=== PATIENT | female | born 1965 | race Caucasian/White ===

== ENCOUNTER 2023-08-11 15:00 | Outpatient (CLI) | payer BC, MEDICAID, SELFPAY ==
--- NOTE | 2023-08-11 15:16 | MM_ITS ---
WS: [id number] Bilateral screening 3D tomosynthesis digital mammogram, 08/11/2023 Clinical Data: SCREENING Comparison: None. Findings: The breast parenchymal pattern shows fibroglandular tissue. There are bilateral augmentation mammopla sty implants which are intact. No spiculated masses or clustered calcifications are seen. There are n o secondary signs of carcinoma. MM/[id number] Impression: 1. Negative bilateral mammogram with no prior exam for review. 2. Recommend annual screening mammograms. BIRADS: 2-Benign FOLLOW UP: 1 Year Follow-up The CAD fact checker was used.
== END 2023-08-11 15:01 | disposition home or self-care (01) ==
PROVIDERS: Family Provider Counselor Professional; Visit Provider Nurse Practitioner
DX: Z12.31 Encounter for screening mammogram for malignant neoplasm of breast (principal)
CPT/HCPCS: 77063; 77067

== ENCOUNTER 2024-01-31 13:03 | Inpatient (IN) | payer BC, MEDICAID, SELFPAY ==
[2024-01-31 13:06] VITALS: BP 106/70; PULSE 80; RESP 18; TEMP 36.9; O2SAT 98; BMI 24.7
[2024-01-31 13:12] VITALS: BP 106/70; PULSE 80; RESP 18; TEMP 36.9; O2SAT 98
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
[2024-01-31 13:40] LABS: Basophils # 0.1 10^3/uL (0.0-0.1); Basophils % 0.9 %; Eosinophils # 0.2 10^3/uL (0.0-0.8); Eosinophils % 2.4 %; Lymphocytes # 3.5 10^3/uL (0.8-4.8); Lymphocytes % 38.1 %; Mean Corpuscular HGB Conc 32.8 g/dL (30-55); Mean Corpuscular Volume 97.5 fl (85-98); Mean Platelet Volume 10.1 fL (7.4-10.4); Monocytes # 0.7 10^3/uL (0.2-0.9); Monocytes % 7.4 %; Neutrophils # 4.67 10^3/uL (1.8-7.7); Nucleated Red Blood Cells % 0 %; Platelet Count 349 10^3/cmm (157-399); Red Blood Count 4.41 10^6/uL (3.85-5.65); Red Cell Distribution Width 12.7 % (12.1-15.1); White Blood Count 9.16 10^3/uL (3.29-11.43)
--- NOTE | 2024-01-31 13:40 | PC.NURSE ---
96 hour hold rights read to patient. Paulino server security administrator accompanied this nurse during the reading of rights. Patient verbalized understandings and copy of rights left at the bedside.
[2024-01-31 13:59] LABS: Alanine Aminotransferase 15 U/L (0-33); Albumin Level 4.3 g/dL (3.5-5.2); Alkaline Phosphatase 95 U/L (35-105); Anion Gap 14.3 (5-19); Aspartate Amino Transferase 22 U/L (0-32); Blood Urea Nitrogen 13 mg/dL (6-20); Calcium 8.5 mg/dL (8.5-10.5); Carbon Dioxide 26 mmol/L (22-29); Chloride 108 mmol/L (98-107); Globulin 2.2 g/dL (1.3-4.6); Glomerular Filtration Rate 86.6 mL/min (90-130); Glucose 82 mg/dL (65-115); Osmolality Calculated 297 mOsm/kg (285-295); Potassium 4.3 mmol/L (3.5-5.1); Sodium 144 mmol/L (136-145); Total Bilirubin 0.4 mg/dL (0.15-1.2); Total Protein 6.5 g/dL (6.6-8.7)
[2024-01-31 14:00] LABS: Acetaminophen < 5.0 ug/mL (10-30); Alcohol Level < 10 mg/dL (0-10); Salicylate < 0.3 mg/dL (3-10)
[2024-01-31] MEDS: acetaminophen 325 mg Tablet 650 MG PO (14:19)
[2024-01-31 15:19] VITALS: BP 115/83; PULSE 73; RESP 18; O2SAT 99
[2024-01-31 15:23] VITALS: BP 103/79; PULSE 78; O2SAT 100
[2024-01-31] MEDS: haloperidol inj 5 mg/mL INJ 1 mL IM (16:11)
[2024-01-31] MEDS: diphenhydrAMINE 50 mg/mL SDV 1mL IM (16:11)
[2024-01-31] MEDS: LORazepam 2 mg/mL INJ 1 mL IM (16:11)
--- NOTE | 2024-01-31 16:57 | PC.NURSE ---
During admission to the unit, pt became increasingly agitated and hysterical over talking about why she was here. rod filler got permission from Dr. Chopra to give IM Ativan 2mg & IM Haldol 5mg in the Left deltoid and IM Benadryl 50mg in the Right deltoid. Patient tolerated the shots well and laid down in bed. RR even and unlabored.
[2024-01-31 19:32] VITALS: BP 96/61; PULSE 71; RESP 16; TEMP 37; O2SAT 98
[2024-02-01 06:00] VITALS: BP 96/59; PULSE 59; RESP 16; O2SAT 96
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
[2024-02-01 08:26] LABS: Amphetamines Screen Urine Negative (Negative); Barbiturates Screen Urine Negative (Negative); Benzodiazepines Screen Urine Positive (Negative); Cocaine Screen Urine Negative (Negative); Opiate Screen Urine Negative (Negative); PCP Screen Urine Negative (Negative); THC Screen Urine Negative (Negative)
[2024-02-01] MEDS: blistex lip oint 7 gm Tube 1 APPLIC TOPICAL (08:59)
--- NOTE | 2024-02-01 09:00 | PC.NURSE ---
MILD ANXIETY NOTED. PT RATES ANXIETY 0/10 AND DEPRESSION 3/10. DENIES SI/HI AND AVH AT THIS TIME. DENIES PAIN. REPORTS SHE SLEPT WELL LAST NIGHT. PT STATES HER GOAL FOR THE DAY IS TO READ THE BIBLE WHILE I'M HERE. SPEECH IS UNCLEAR AND DIFFICULTY TO UNDERSTAND. AFFECT IS FLAT. ALL QUESTIONS ANSWERED AND SUPPORT WAS VOICED.
[2024-02-01 14:00] VITALS: BP 108/67; PULSE 71; RESP 16; TEMP 36.5; O2SAT 97
[2024-02-01] MEDS: escitalopram 10 mg Tablet PO (18:14)
[2024-02-01 20:02] VITALS: BP 105/75; PULSE 68; RESP 18; O2SAT 98
[2024-02-01] MEDS: nicotine 2 mg Gum BUCCAL (20:28)
[2024-02-01] MEDS: hyDROXYzine 25 mg Capsule 50 MG PO (20:28)
[2024-02-01] MEDS: trazodone 50 mg Tablet PO (20:28)
[2024-02-02 06:00] VITALS: BP 89/58; PULSE 79; RESP 16; TEMP 36.8; O2SAT 97
[2024-02-02] MEDS: acetaminophen 325 mg Tablet 650 MG PO (09:19)
[2024-02-02] MEDS: escitalopram 10 mg Tablet PO (09:20)
--- NOTE | 2024-02-02 10:06 | W.PM.NPUPNS ---
Subjective NPU Subjective: Patient presented today reporting that she is feeling better. She identified that she is doing okay with the medication thus far. She continues to struggle with some of the elements related to her relationship with her father. She seems to be less tearful and labile per staff reports and direct observation. She denied any side effects to the medication thus far. Mental Status Exam MSE Comments: This is a well-nourished well-developed white female in hospital scrubs with adequate grooming and eye contact.? No abnormal movements except for mild psychomotor retardation.? Mostly cooperative with exam in mild to moderate distress.? Speech was normal rate and decreased volume.? Mood described as okay I guess better than yesterday, affect subdued.? Thought process linear.? Thought content: Patient denied suicidal or homicidal ideation, there were no delusions reported or noted, she denied auditory or visual hallucinations. The patient has experienced periods of low mood, feelings of helplessness, hopelessness, and worthlessness. The patient has had thoughts of not wanting to wake up, but denies current suicidal ideation. The patient reports experiencing paranoia and hearing voices, but is able to ignore them. The patient also reports having nightmares and flashbacks about traumatic events in their life.. Attention and concentration were limited and memory appeared mostly reliable but none were formally tested.? She is alert and oriented x 3.? Insight, judgment and impulse control are limited versus impaired. Vitals/I&O/Wt Last Vital Signs Temp 98.2 F 02/02/24 06:00 Pulse 79 02/02/24 06:00 Resp 16 02/02/24 06:00 BP 89/58 02/02/24 06:00 Pulse Ox 97 02/02/24 06:00 O2 Del Method Room Air 02/02/24 06:00 Weight last 48 hrs Weight 63.503 kg Data NPU 01/31/24 13:21 01/31/24 13:21 A&P Assessment and plan (1) Acute psychosis: (2) Involuntary commitment: (3) Major depressive disorder, recurrent: (4) PTSD (post-traumatic stress disorder): (5) History of alcohol use disorder: (6) Methamphetamine use disorder, moderate, in early remission, dependence: (7) Parent-child relational problem: Plan This is a 58-year-old white female with a significant history of mental health and addiction as well as trauma and difficulties with her relationship with her father. The patient is currently on a 96-hour involuntary psychiatric hold due 2 issues she is unclear about. The patient has a history of depression, anxiety, and trauma. The patient is currently not on any psychotropic medications, but is amenable to initiating pharmacotherapy for depression. The patient is experiencing symptoms of paranoia and auditory hallucinations, but is able to manage these psychotic symptoms. 1.? Initiated Lexapro 10 mg p.o. daily 2.? Continue every 15 minute checks for safety. 3.? Encourage individual, group and milieu therapies. 4. Encourage sober living treatment after discharge at the highest level care to which she is willing to commit. Involuntary Hold Information 96 Hour Hold: 96 Hour Involuntary Admission: Yes 96 Hour Hold Ending Date: 02/06/24 96 Hour Hold Ending Time: 13:17 Attestations U Medical Necessity Statement*: Inpatient hospitalization is medically necessary and the clinically appropriate intervention at this time. We will monitor medication to make changes as indicated. Likely length of stay 4-6 days. Coding Level of Care Code Acute Code for [facility] Fwd Diagnoses Acute psychosis F23 Involuntary commitment Z04.6 Major depressive disorder, recurrent F33.9 PTSD (post-traumatic stress disorder) F43.10 History of alcohol use disorder Z87.898 Methamphetamine use disorder, moderate, in early remission, dependence F15.21 Parent-child relational problem Z62.820
--- NOTE | 2024-02-02 10:08 | PC.NURSE ---
RESTING IN BED AROUSES TO VOICE. FLAT AFFECT NOTED. RATES ANXIETY 06/25 AND DEPRESSION /. DENIES SI/HI AT THIS TIME. ENDORSES HEARING VOICE. STATES I ALWAYS HEAR ONE VOICE ALL THE TIME. PT WAS OBSERVED STOPPING THE CONVERSTATION THEN LOOKING UP STATING SEE I'M LISTENING TO THE VOICE NOW. WHEN ASKED IF SHE SEES THINGS THAT ARE NOT THERE PT STATES YEAH WHEN I'M IN THE [place] SOMETIMES SUPPORT VOICED.
[2024-02-02] MEDS: nicotine 2 mg Gum BUCCAL ×4 (10:36→18:14)
--- NOTE | 2024-02-02 13:02 | PC.NURSE ---
Patient at window, yelling at staff about not having access to colored pencils or pens. Patient stated, if I was a child in preschool, I would have already dumped all of this on floor, but I am not going to do that! I won't even consider it! Patient also said that this is another wrench in her getting help.
[2024-02-02] MEDS: diclofenac 1% Topical Gel 100 gm 1 APPLIC TOPICAL (13:29)
[2024-02-02 14:00] VITALS: BP 120/82; PULSE 79; RESP 17; O2SAT 96
[2024-02-02] MEDS: hyDROXYzine 25 mg Capsule 50 MG PO ×2 (18:14→21:05)
[2024-02-02 20:51] VITALS: BP 159/90; PULSE 82; RESP 18; TEMP 37.1; O2SAT 98
[2024-02-02] MEDS: trazodone 50 mg Tablet PO (21:06)
[2024-02-03 06:00] VITALS: BP 98/69; PULSE 69; RESP 16; TEMP 36.9; O2SAT 93
[2024-02-03] MEDS: nicotine 2 mg Gum BUCCAL ×4 (06:43→15:16)
[2024-02-03] MEDS: escitalopram 10 mg Tablet PO (08:32)
[2024-02-03] MEDS: hyDROXYzine 25 mg Capsule 50 MG PO ×2 (09:18→15:13)
[2024-02-03] MEDS: OLANZapine 5 mg ODT PO (13:01)
[2024-02-03 14:00] VITALS: BP 106/71; PULSE 77; RESP 16; TEMP 37.2; O2SAT 98
[2024-02-03] MEDS: acetaminophen 325 mg Tablet 650 MG PO (15:16)
--- NOTE | 2024-02-03 19:10 | W.PM.NPUPNS ---
Subjective NPU Subjective: Patient presented today reporting that she is very frustrated. She identified herself as being upset about being forced to be here and her father never having any consequences per staff reports and direct observation. She reported that she needed to be allowed to leave so that she can get on with her life including getting her own place and things like that. She was upset when this ad writer raise the question of why that has not been something she has done already and why discharging now allows her to do something that she could not do the past years. She was very limited in her ability to discuss the issue. She denied any side effects from the medication but was resistant to initiating a medication for mood stabilization. Mental Status Exam MSE Comments: This is a well-nourished well-developed white female in hospital scrubs with adequate grooming and eye contact.? No abnormal movements except for mild psychomotor retardation.? Mostly cooperative with exam in mild to moderate distress.? Speech was normal rate and decreased volume.? Mood described as upset about being here, affect congruent and irritable. Thought process linear.? Thought content: Patient denied suicidal or homicidal ideation, there were no delusions reported or noted, she denied auditory or visual hallucinations. The patient has experienced periods of low mood, feelings of helplessness, hopelessness, and worthlessness. The patient has had thoughts of not wanting to wake up, but denies current suicidal ideation. The patient reports experiencing paranoia and hearing voices, but is able to ignore them. The patient also reports having nightmares and flashbacks about traumatic events in their life.. Attention and concentration were limited and memory appeared mostly reliable but none were formally tested.? She is alert and oriented x 3.? Insight, judgment and impulse control are limited versus impaired. Vitals/I&O/Wt Last Vital Signs Temp 99 F 02/03/24 14:00 Pulse 77 02/03/24 14:00 Resp 16 02/03/24 14:00 BP 106/71 02/03/24 14:00 Pulse Ox 98 02/03/24 14:00 O2 Del Method Room Air 02/03/24 14:00 Data NPU 01/31/24 13:21 01/31/24 13:21 A&P Assessment and plan (1) Acute psychosis: (2) Involuntary commitment: (3) Major depressive disorder, recurrent: (4) PTSD (post-traumatic stress disorder): (5) History of alcohol use disorder: (6) Methamphetamine use disorder, moderate, in early remission, dependence: (7) Parent-child relational problem: Plan This is a 58-year-old white female with a significant history of mental health and addiction as well as trauma and difficulties with her relationship with her father. The patient is currently on a 96-hour involuntary psychiatric hold due 2 issues she is unclear about. The patient has a history of depression, anxiety, and trauma. The patient is currently not on any psychotropic medications, but is amenable to initiating pharmacotherapy for depression. The patient is experiencing symptoms of paranoia and auditory hallucinations, but is able to manage these psychotic symptoms. 1.? Initiated Lexapro 10 mg p.o. daily. Discussed a possible mood stabilizer but she is currently fairly irritable. 2.? Continue every 15 minute checks for safety. 3.? Encourage individual, group and milieu therapies. 4. Encourage sober living treatment after discharge at the highest level care to which she is willing to commit. 5. Filed for 21-day hold. Involuntary Hold Information 96 Hour Hold: 96 Hour Involuntary Admission: Yes 96 Hour Hold Ending Date: 02/06/24 96 Hour Hold Ending Time: 13:17 Attestations NPU Medical Necessity Statement*: Inpatient hospitalization is medically necessary and the clinically appropriate intervention at this time. We will monitor medication to make changes as indicated. Likely length of stay 4-6 days. Coding Level of Care Code Acute Code for [facility] Fwd Diagnoses Acute psychosis F23 Involuntary commitment Z04.6 Major depressive disorder, recurrent F33.9 PTSD (post-traumatic stress disorder) F43.10 History of alcohol use disorder Z87.898 Methamphetamine use disorder, moderate, in early remission, dependence F15.21 Parent-child relational problem Z62.820
[2024-02-03 19:33] VITALS: BP 86/53; PULSE 64; RESP 16; TEMP 36.4; O2SAT 97
[2024-02-04 06:00] VITALS: BP 135/85; PULSE 68; RESP 16; TEMP 36.5; O2SAT 99
[2024-02-04] MEDS: nicotine 2 mg Gum BUCCAL ×4 (06:10→14:14)
[2024-02-04] MEDS: escitalopram 10 mg Tablet PO (08:01)
--- NOTE | 2024-02-04 09:15 | PC.NURSE ---
PT IS AGITATED THIS MORNING ABOUT A VARIETY OF DIFFERENT THINGS. THIS NURSE ATTEMPTED TO APPROACH PT TO PERFORM ASSESSMENT AND SPEAK TO HER ABOUT WHAT IS GOING ON AND THIS INCREASED PT AGITATION AND PT YELLED DON'T TALK DOWN TO ME LIKE THAT. LEARN SOME RESPECT, I DON'T NEED SOME FUCKING LITTLE GIRL ASKING 'HOW ARE YOU, WHAT CAN I DO FOR YOU?' PT THEN CONTINUED TO YELL IN HER ROOM UNTIL SHE FELL ASLEEP. THIS NURSE CHOSE TO GIVE PT SPACE DUE TO HER REACTION TO ATTEMPTED INTERACTION. PT APPEARED TO BE IN NO DISTRESS AFTER FALLING ASLEEP.
[2024-02-04] MEDS: polyethylene glycol 3350 Pkt 17 gm PO (09:24)
--- NOTE | 2024-02-04 09:25 | P.NPUPN_ITS ---
Subjective NPU 2 Subjective: Patient presented today reporting that she is upset about being here. She feels that other people are being treated better and she feels concerns that she is going to be stuck here when she does not need to be here. She continues to be resistant to the idea that there is anything significant going on with her. She continues to be upset that her father is not having to go through similar challenges. She denied any side effects to medications but would not have an open discussion about treatment for her hyperkinetic, irritable state. Mental Status Exam 2 MSE Comments: This is a well-nourished well-developed white female in hospital scrubs with adequate grooming and eye contact.? No abnormal movements except for mild psychomotor retardation.? Mostly cooperative with exam in mild to moderate distress.? Speech was normal rate and decreased volume.? Mood described as upset about being here, affect congruent and irritable. Thought process linear.? Thought content: Patient denied suicidal or homicidal ideation, there were no delusions reported or noted, she denied auditory or visual hallucinations. The patient has experienced periods of low mood, feelings of helplessness, hopelessness, and worthlessness. The patient has had thoughts of not wanting to wake up, but denies current suicidal ideation. The patient reports experiencing paranoia and hearing voices, but is able to ignore them. The patient also reports having nightmares and flashbacks about traumatic events in their life.. Attention and concentration were limited and memory appeared mostly reliable but none were formally tested.? She is alert and oriented x 3.? Insight, judgment and impulse control are limited versus impaired. Vitals/I&O/Wt Last Vital Signs Temp 97.7 F 02/04/24 06:00 Pulse 68 02/04/24 06:00 Resp 16 02/04/24 06:00 BP 135/85 02/04/24 06:00 Pulse Ox 99 02/04/24 06:00 O2 Del Method Room Air 02/04/24 06:00 Data NPU 01/31/24 13:21 01/31/24 13:21 A&P Assessment and plan (1) Acute psychosis: (2) Involuntary commitment: (3) Major depressive disorder, recurrent: (4) PTSD (post-traumatic stress disorder): (5) History of alcohol use disorder: (6) Methamphetamine use disorder, moderate, in early remission, dependence: (7) Parent-child relational problem: Plan This is a 58-year-old white female with a significant history of mental health and addiction as well as trauma and difficulties with her relationship with her father. The patient is currently on a 96-hour involuntary psychiatric hold due 2 issues she is unclear about. The patient has a history of depression, anxiety, and trauma. The patient is currently not on any psychotropic medications, but is amenable to initiating pharmacotherapy for depression. The patient is experiencing symptoms of paranoia and auditory hallucinations, but is able to manage these psychotic symptoms. 1.? Initiated Lexapro 10 mg p.o. daily. Discussed a possible mood stabilizer but she is currently fairly irritable. Patient resistant to initiating additional medication at this point but continues to appear manic 2.? Continue every 15 minute checks for safety. 3.? Encourage individual, group and milieu therapies. 4. Encourage sober living treatment after discharge at the highest level care to which she is willing to commit. 5. Filed for 21-day hold. Involuntary Hold Information 2 96 Hour Hold: 96 Hour Involuntary Admission: Yes 96 Hour Hold Ending Date: 02/06/24 96 Hour Hold Ending Time: 13:17 Attestations NPU 2 Medical Necessity Statement*: Inpatient hospitalization is medically necessary and the clinically appropriate intervention at this time. We will monitor medication to make changes as indicated. Likely length of stay 4-6 days. Coding Level of Care Code Acute Code for [facility] Fwd Diagnoses Acute psychosis F23 Involuntary commitment Z04.6 Major depressive disorder, recurrent F33.9 PTSD (post-traumatic stress disorder) F43.10 History of alcohol use disorder Z87.898 Methamphetamine use disorder, moderate, in early remission, dependence F15.21 Parent-child relational problem Z62.820
[2024-02-04] MEDS: hyDROXYzine 25 mg Capsule 50 MG PO (10:41)
[2024-02-04] MEDS: OLANZapine 5 mg ODT PO (10:42)
[2024-02-04 13:57] VITALS: BP 106/73; PULSE 84; RESP 18; TEMP 35.9; O2SAT 98
[2024-02-04] MEDS: haloperidol 5 mg Tablet PO (14:18)
[2024-02-04 20:06] VITALS: BP 90/57; PULSE 69; RESP 18; TEMP 36.6; O2SAT 96
[2024-02-04] MEDS: CLONazepam 1 mg Tablet PO (21:15)
[2024-02-05 06:00] VITALS: BP 90/53; PULSE 76; RESP 17; O2SAT 96
[2024-02-05] MEDS: nicotine 2 mg Gum BUCCAL ×4 (07:22→20:08)
--- NOTE | 2024-02-05 07:59 | P.NPUPN_ITS ---
Subjective NPU 2 Subjective: Patient presented today reporting that she is doing okay. She was resistant to conversation. She continued to have irritability per staff reports and direct observation. Discussed Dr. Palomino returning tomorrow to be be decision-maker for discharge. Continue to discuss mood stabilizers with resistance. Discussed having a milligram of Klonopin for assistance with sleep. She denied any side effects to the medication. Mental Status Exam 2 MSE Comments: This is a well-nourished well-developed white female in hospital scrubs with adequate grooming and eye contact.? No abnormal movements except for mild psychomotor retardation.? Mostly cooperative with exam in mild to moderate distress.? Speech was normal rate and decreased volume.? Mood described as upset about being here, affect congruent and irritable. Thought process linear.? Thought content: Patient denied suicidal or homicidal ideation, there were no delusions reported or noted, she denied auditory or visual hallucinations. The patient has experienced periods of low mood, feelings of helplessness, hopelessness, and worthlessness. The patient has had thoughts of not wanting to wake up, but denies current suicidal ideation. The patient reports experiencing paranoia and hearing voices, but is able to ignore them. The patient also reports having nightmares and flashbacks about traumatic events in their life.. Attention and concentration were limited and memory appeared mostly reliable but none were formally tested.? She is alert and oriented x 3.? Insight, judgment and impulse control are limited versus impaired. Vitals/I&O/Wt Last Vital Signs Temp 97.8 F 02/04/24 20:06 Pulse 76 02/05/24 06:00 Resp 17 02/05/24 06:00 BP 90/53 02/05/24 06:00 Pulse Ox 96 02/05/24 06:00 O2 Del Method Room Air 02/04/24 20:06 Weight last 48 hrs Weight 59.194 kg Data NPU 01/31/24 13:21 01/31/24 13:21 A&P Assessment and plan (1) Acute psychosis: (2) Involuntary commitment: (3) Major depressive disorder, recurrent: (4) PTSD (post-traumatic stress disorder): (5) History of alcohol use disorder: (6) Methamphetamine use disorder, moderate, in early remission, dependence: (7) Parent-child relational problem: Plan This is a 58-year-old white female with a significant history of mental health and addiction as well as trauma and difficulties with her relationship with her father. The patient is currently on a 96-hour involuntary psychiatric hold due 2 issues she is unclear about. The patient has a history of depression, anxiety, and trauma. The patient is currently not on any psychotropic medications, but is amenable to initiating pharmacotherapy for depression. The patient is experiencing symptoms of paranoia and auditory hallucinations, but is able to manage these psychotic symptoms. 1.? Initiated Lexapro 10 mg p.o. daily. Discussed a possible mood stabilizer but she is currently fairly irritable. Patient resistant to initiating additional medication at this point but continues to appear manic. Initiated 1 mg Klonopin p.o. nightly to help with sleep and trying to work with patient on a mood stabilizer. 2.? Continue every 15 minute checks for safety. 3.? Encourage individual, group and milieu therapies. 4. Encourage sober living treatment after discharge at the highest level care to which she is willing to commit. 5. Filed for 21-day hold. Involuntary Hold Information 2 96 Hour Hold: 96 Hour Involuntary Admission: Yes 96 Hour Hold Ending Date: 02/06/24 96 Hour Hold Ending Time: 13:17 Attestations NPU 2 Medical Necessity Statement*: Inpatient hospitalization is medically necessary and the clinically appropriate intervention at this time. We will monitor medication to make changes as indicated. Likely length of stay 4-6 days. Coding Level of Care Code Acute Code for [facility] Fwd Diagnoses Acute psychosis F23 Involuntary commitment Z04.6 Major depressive disorder, recurrent F33.9 PTSD (post-traumatic stress disorder) F43.10 History of alcohol use disorder Z87.898 Methamphetamine use disorder, moderate, in early remission, dependence F15.21 Parent-child relational problem Z62.820
[2024-02-05] MEDS: escitalopram 10 mg Tablet PO (08:57)
[2024-02-05] MEDS: OLANZapine 5 mg ODT PO (08:57)
[2024-02-05] MEDS: ziprasidone 20 mg/mL SDV IM (11:12)
[2024-02-05] MEDS: water for injection-sterile 10 ML (11:13)
[2024-02-05 14:00] VITALS: BP 132/78; PULSE 85; RESP 20; TEMP 37.1; O2SAT 99
--- NOTE | 2024-02-05 17:18 | PC.NURSE ---
1105 Pt up at the nurses station talking with another peer and this keno writer. Pt was verbally provoked by another pt, pt was already on edge and being snarky with comments and digs towards BASEBALL COACH on the unit. Medication was ordered IM from the for this pt's extreme agitation.
[2024-02-05 19:57] VITALS: BP 113/83; PULSE 73; RESP 19; TEMP 36.2; O2SAT 97
[2024-02-05] MEDS: CLONazepam 1 mg Tablet PO (20:08)
[2024-02-06 06:15] VITALS: BP 95/72; PULSE 90; RESP 18; TEMP 36.8; O2SAT 96
[2024-02-06] MEDS: nicotine 2 mg Gum BUCCAL ×4 (06:29→15:28)
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
[2024-02-06] MEDS: escitalopram 10 mg Tablet PO (08:32)
[2024-02-06] MEDS: hyDROXYzine 25 mg Capsule 50 MG PO (10:27)
[2024-02-06] MEDS: acetaminophen 325 mg Tablet 650 MG PO (10:27)
[2024-02-06] MEDS: blistex lip oint 7 gm Tube 1 APPLIC TOPICAL (10:27)
--- NOTE | 2024-02-06 10:29 | PC.NURSE ---
PRN VISTARIL 50 MG GIVEN PO PER PT C/O STATED ANXIETY
--- NOTE | 2024-02-06 12:02 | PC.NURSE ---
NEW ORDERS RECEIVED TO GIVE MULTIVITAMIN TAB DAILY AND LIDOCAINE PATCH 5% TOPICAL PRN PAIN. PT EDUCATED ON NEW ORDERS AND SUPPORT WAS VOICED.
[2024-02-06] MEDS: multivitamin therapeutic Tablet 1 TAB PO (12:14)
[2024-02-06] MEDS: OLANZapine 5 mg ODT PO (12:54)
[2024-02-06] MEDS: haloperidol 5 mg Tablet PO (13:58)
--- NOTE | 2024-02-06 13:59 | PC.NURSE ---
PRN HALDOL 5 MG GIVEN PO PER PT C/O STATED ANXIETY/AGITATION. REQUESTING ANY AND ALL PRN MEDICATIONS SHE CAN HAVE
[2024-02-06 14:00] VITALS: BP 106/72; PULSE 89; RESP 18; TEMP 36.6; O2SAT 100
[2024-02-06] MEDS: lidocaine 5% Patch 1 PATCH TOPICAL (14:02)
--- NOTE | 2024-02-06 16:36 | PC.NURSE ---
PT REQUIRED SEVERAL PRN MEDICATIONS THIS SHIFT DUE TO ANXIETY AND AGITATION. PT WAS OBSERVED AT THE NURSES STATION YELLING AT THIS RN MAKING STATEMENTS YOU GUYS MAKE ME STAY HERE AND I NEED A MANAGER BRIDGE A FUCKING MANAGER BRIDGE, YOU NEED TO CALL THE HOSPITAL MANAGER BRIDGE TO COME AND EXPLAIN THE PAPER WORK THAT I DIDN'T SIGN. I NEVER AGREED TO STAY HERE, I'M GOING TO GET A MANAGER BRIDGE. LOTS OF OFFICE COMMUNICATION PROFESSOR. PT ALSO KEPT YELLING FOR A A PIECE OF THAT FUCKING NICOTINE GUM, HURRY UP I NEED SOME GUM. PT WAS INFORMED THAT THIS RN WOULD GET THE GUM WHEN FINISHED TASK. PT WAS REDIRECTED TO STOP YELLING AT THIS RN AND AT THE NURSING STAFFF. PT YELLED STATING I'M NOT FUCKING YELLING BUT I'M DONE ARGUING WITH YOU. PT THEN GOT ON PHONE AND WAS SPEAKING TO THE ART INSTRUCTOR ABOUT HER HOLD. THIS RN WENT OVER TO THE PHONE AND GAVE PT HER NICOTINE GUM. GEODON 20 MG IM WAS PULLED TO GIVE BUT PT DID EVENTUALLY CALM AND REQUIRED NO FURTHER INTERVENTION. SUPPORT VOICED.
--- NOTE | 2024-02-06 19:14 | P.NPUPN_ITS ---
Subjective NPU 2 Subjective: 58-year-old female admitted with psychos is the past history of methamphetamine use. Patient had reported a history of PTSD. She had reported that she was feeling better currently. She had reported that she had felt calmer currently. She had stated that she was unsure as to whether she could return to live with her father and stated that she may need to go to a [place] [facility] [place] instead. She was agreeable to considering psychotherapy. She had reported that she was upset over having to remain here at this time as a 96-hour hold was filed. She had remained resistant regarding initiating mood stabilizers at this time. She denied any racing thoughts but remained irritable with poor frustration tolerance reported by staff. She had reported hx of frequent trauma based nightmares. Mental Status Exam 2 MSE Comments: This is a well-nourished well-developed white female in hospital scrubs with adequate grooming and eye contact.? No abnormal movements except for mild psychomotor retardation.? Mostly cooperative with exam in mild to moderate distress.? Speech was normal rate and decreased volume.? Mood described as upset about being here, affect was irritable. Thought process was linear.? Thought content: Patient denied suicidal or homicidal ideation, there were no delusions reported or noted, she denied auditory or visual hallucinations. She denied any auditory or visual hallucinations. The patient also reports having nightmares and flashbacks about traumatic events in their life.. Attention and concentration were limited and memory appeared mostly reliable but none were formally tested.? She is alert and oriented x 3.? Insight, judgment and impulse control are limited versus impaired. Vitals/I&O/Wt Last Vital Signs Temp 97.9 F 02/06/24 14:00 Pulse 89 02/06/24 14:00 Resp 18 02/06/24 14:00 BP 106/72 02/06/24 14:00 Pulse Ox 100 02/06/24 14:00 O2 Del Method Room Air 02/06/24 06:15 02/06/24 02/06/24 02/06/24 06:59 14:59 22:59 Intake Total 500 / 500 Balance 500 / 500 Weight last 48 hrs Weight 59.194 kg Data NPU 01/31/24 13:21 01/31/24 13:21 A&P Assessment and plan (1) Acute psychosis: (2) Involuntary commitment: (3) Major depressive disorder, recurrent: (4) PTSD (post-traumatic stress disorder): (5) History of alcohol use disorder: (6) Methamphetamine use disorder, moderate, in early remission, dependence: (7) Parent-child relational problem: Plan This is a 58-year-old white female with a significant history of mental health and addiction as well as trauma and difficulties with her relationship with her father. The patient is currently on a 96-hour involuntary psychiatric hold due 2 issues she is unclear about. The patient has a history of depression, anxiety, and trauma. The patient is currently not on any psychotropic medications, but is amenable to initiating pharmacotherapy for depression. The patient is experiencing symptoms of paranoia and auditory hallucinations, but is able to manage these psychotic symptoms. 1.? Continue Lexapro 10 mg p.o. daily. Discussed a possible mood stabilizer but she is currently fairly irritable. Patient resistant to initiating additional medication at this point but continues to appear manic. Initiated 1 mg Klonopin p.o. nightly to help with sleep and trying to work with patient on a mood stabilizer. 2.? Continue every 15 minute checks for safety. 3.? Encourage individual, group and milieu therapies. 4. Encourage sober living treatment after discharge at the highest level care to which she is willing to commit. 5. Filed for 21-day hold. Involuntary Hold Information 2 96 Hour Hold: 96 Hour Involuntary Admission: Yes 96 Hour Hold Ending Date: 02/06/24 96 Hour Hold Ending Time: 13:17 Attestations NPU 2 Medical Necessity Statement*: Inpatient hospitalization is medically necessary and the clinically appropriate intervention at this time. We will monitor medication to make changes as indicated. Likely length of stay 4-6 days. Coding Level of Care Code Acute Code for [facility] Fwd Diagnoses Acute psychosis F23 Involuntary commitment Z04.6 Major depressive disorder, recurrent F33.9 PTSD (post-traumatic stress disorder) F43.10 History of alcohol use disorder Z87.898 Methamphetamine use disorder, moderate, in early remission, dependence F15.21 Parent-child relational problem Z62.820
--- NOTE | 2024-02-06 19:41 | PC.NURSE ---
pt ref vs resp 16 charge notified
[2024-02-07 04:55] VITALS: BP 98/74; PULSE 67; RESP 18; TEMP 36.7; O2SAT 97
[2024-02-07] MEDS: nicotine 4 mg lozenge MUCOUS MEM (05:03)
[2024-02-07] MEDS: nicotine 2 mg Gum BUCCAL ×4 (07:30→12:54)
[2024-02-07] MEDS: OLANZapine 5 mg ODT PO ×2 (07:30→14:14)
[2024-02-07] MEDS: multivitamin therapeutic Tablet 1 TAB PO (09:21)
[2024-02-07] MEDS: escitalopram 10 mg Tablet PO (09:21)
[2024-02-07] MEDS: lidocaine 5% Patch 1 PATCH TOPICAL (09:41)
[2024-02-07] MEDS: haloperidol 5 mg Tablet PO (10:16)
[2024-02-07] MEDS: ARIPiprazole 10 mg Tablet 5 MG PO (12:02)
[2024-02-07 12:29] VITALS: BP 98/74; PULSE 67; RESP 18; TEMP 36.7; O2SAT 97
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
[2024-02-07] MEDS: acetaminophen 325 mg Tablet 650 MG PO (14:11)
== END 2024-02-07 15:10 | disposition home or self-care (01) | DRG 885 ==
LOC: ER 14:16 → NP 14:48
PROVIDERS: Admitting Provider Psychiatry & Neurology Psychiatry; Emergency Provider Physician Assistant; Family Provider Counselor Professional; Visit Provider Psychiatry & Neurology Psychiatry
DX: F23 Brief psychotic disorder (principal); F33.9 Major depressive disorder, recurrent, unspecified; F43.12 Post-traumatic stress disorder, chronic; F10.11 Alcohol abuse, in remission; F15.11 Other stimulant abuse, in remission; Z62.820 Parent-biological child conflict; Z91.419 Personal history of unspecified adult abuse; Z91.410 Personal history of adult physical and sexual abuse; F17.210 Nicotine dependence, cigarettes, uncomplicated; F41.9 Anxiety disorder, unspecified; F14.11 Cocaine abuse, in remission; Z81.8 Family history of other mental and behavioral disorders; Z59.6 Low income; Z79.1 Long term (current) use of non-steroidal anti-inflammatories (NSAID); Y90.0 Blood alcohol level of less than 20 mg/100 ml
CPT/HCPCS: 36415; 80053; 80306; 80307; 85025; 96372; 97150; 97165; 99285; J1200; J1630; J2060; J3486

== ENCOUNTER 2024-02-25 17:24 | Emergency (ER) | payer BC, MEDICAID, SELFPAY ==
[2024-02-25 17:25] VITALS: BP 90/58; PULSE 90; TEMP 36.8; O2SAT 94; BMI 23.0
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
== END 2024-02-25 17:39 | disposition home or self-care (01) ==
PROVIDERS: Emergency Provider Family Medicine; Family Provider Counselor Professional
DX: F10.129 Alcohol abuse with intoxication, unspecified (principal)
CPT/HCPCS: 99281

== ENCOUNTER 2024-02-25 18:36 | Emergency (ER) | payer BC, MEDICAID, SELFPAY ==
--- NOTE | 2024-02-25 18:46 | ED.C_ITS ---
HPI - Psych General: Chief Complaint: Psychiatric Symptoms Stated Complaint: MHE not HI at the moment Time Seen by Provider: 02/25/24 18:46 History of Present Illness: 58-year-old female who presents to the e mergency room for the second time today. On my initial attempted exam she is screaming and yelling and cursing about her father and how he does not respect her and she is living in his home. I go to ask her what her goals are for this visit today. She says she wants to go into the psychiatry unit. I asked her if she is suicidal or homicidal she says no. I asked her why she wants to go into the psychiatric unit and she says she just does not want to go home. I then tell her that does not meet criteria for inpatient admission but I will talk with Dr. Chopra. She then makes several cursing slurs about Dr. Chopra and says she does not want to go in there with him because she hates them. She appears like she may be slightly intoxicated, however she says she has not been drinking. Related Data Home Medications Medication Instructions Recorded Confirmed methocarbamol 750 mg tablet 1,500 mg PO Q6H 01/31/24 02/16/24 naproxen 500 mg tablet 500 mg PO Q12H 01/31/24 02/16/24 Previous Rx's Medication Instructions Recorded Klonopin 0.5 mg tablet (clonazepam) 0.5 mg PO .qhs #7 tabs 02/07/24 aripiprazole 10 mg tablet 5 mg (1/2 x 10 mg) PO DAILY 30 02/07/24 days #15 tabs escitalopram oxalate 10 mg tablet 10 mg PO DAILY 30 days #30 tabs 02/07/24 Allergies Allergy/AdvReac Type Severity Reaction Status Date / Time Penicillins Allergy ALGY-Rash Verified 02/16/24 11:29 quetiapine [From Seroquel] Allergy ALGY-Rash Verified 02/16/24 11:29 sertraline [From Zoloft] Allergy ALGY-Rash Verified 02/16/24 11:29 Review of Systems Narrative: Constitutional symptoms: Negative except as documented in HPI. Skin symptoms: Negative except as documented in HPI. Eye symptoms: Negative except as documented in HPI. ENMT symptoms: Negative except as documented in HPI. Respiratory symptoms: Negative except as documented in HPI. Cardiovascular symptoms: Negative except as documented in HPI. Gastrointestinal symptoms: Negative except as documented in HPI. Genitourinary symptoms: Negative except as documented in HPI. Musculoskeletal symptoms: Negative except as documented in HPI. Neurologic symptoms: Negative except as documented in HPI. Psychiatric symptoms: Negative except as documented in HPI. Endocrine symptoms: Negative except as documented in HPI. [facility] ED PFSH: Medical History (Updated 02/25/24 @ 19:04 by Shari Chacon MD) Psychiatric care Methamphetamine use disorder, moderate, in early remission, dependence History of alcohol use disorder Physical Exam Narrative: EXAM NARRATIVE: General: Alert, no acute distress. Skin: warm and dry Head: Normocephalic Neck: Trachea midline Eye: Extraocular movements are intact. Ears, nose, mouth and throat: Oral mucosa moist Respiratory: Respirations are non-labored Musculoskeletal: Normal ROM Neurological: Alert and oriented, No focal neurological deficit observed. Psychiatric: Cooperative, appropriate mood & affect. I did not lay hands on this patient as she was being extremely verbally abusive. Her oxygen saturations are good and her airway is patent enough for her to scream and yell for an extended period of time. Her heart rate is normal. Her blood pressure is low normal. She has been walking. Course Vital Signs: Vital signs: Vital Signs Temperature 98 F 02/25/24 18:52 Pulse Rate 95 02/25/24 18:52 Respiratory Rate 20 H 02/25/24 18:52 Blood Pressure 95/60 02/25/24 18:52 Pulse Oximetry 96 02/25/24 18:52 MDM - Psych Medical Decision Making Patient has remained verbally abusive. She has been extremely loud and yelling at people. She is argumentative. I believe she is malingering. She does not want to go home and so she wants to be put into the psychiatric unit. However she continues to deny any homicidal or suicidal ideations. She says she just wants to go there because she wants to. She had become angry at the physician that saw her earlier in the day today because he asked if she had been drinking. She left AMA at that time and used vulgar hand gestures as she was leaving. Assessment and plan: Anger - Discharged home - Discussed plan with patient. Answered any questions. - Evaluation and treatment of this problem were appropriate in the emergency setting. No radiology studies performed this visit Discharge Plan Discharge Patient Disposition: Home Clinical Impression: Anger Condition: Stable Prescriptions: No Action methocarbamol 750 mg tablet 1,500 mg PO Q6H naproxen 500 mg tablet 500 mg PO Q12H escitalopram oxalate 10 mg Tablet 10 mg PO DAILY 30 Days Qty: 30 1RF aripiprazole 10 mg Tablet 5 mg PO DAILY 30 Days Qty: 15 1RF clonazepam [Klonopin] 0.5 mg tablet 0.5 mg PO .qhs Qty: 7 0RF Rx Instructions: Take for 7 days then discontinue Discharge Orders: Discharge ED (Routine); Ordered 02/25/24 Ordered By: Shari Chacon Referrals: Lilibeth Gutierrez, LUIS [Therapist] - Sofiya Bueno FNP [Primary Care Provider] - Discharge Diet: Usual diet Discharge Activity: Increase activity as tolerated Patient Instructions: Opioid Safety, Pain Management Activity Restrictions/Additional Instructions: Thank you for choosing [facility] for your healthcare needs today. Please realize this is an emergency room and that we are providing you with a medical screening exam and this may not be complete and all inclusive of all the testing and or work up that you may need to determine your ailment or severity of your illness. You have been screened and evaluated and felt safe for discharge. Health conditions do change or evolve sometimes and as such it is important that you follow up with your Primary Doctor to be re checked, 3-5 days is a general good time frame for follow up. You are always welcome to return to the ED for re assessment if your symptoms are worsening or you have new concerns Coding Level of Care Code ED [employer] for Cecile Vergara
[2024-02-25 18:52] VITALS: BP 95/60; PULSE 95; RESP 20; TEMP 36.6; O2SAT 96; BMI 23.2
== END 2024-02-25 19:13 | disposition home or self-care (01) ==
PROVIDERS: Emergency Provider Emergency Medicine; PCP Nurse Practitioner Family
DX: R45.4 Irritability and anger (principal)
CPT/HCPCS: 99281

== ENCOUNTER 2024-12-18 12:24 | Inpatient (IN) | payer MEDICAID, SELFPAY ==
--- NOTE | 2024-12-18 12:34 | W.ED.PSYCHS ---
HPI - Psych General: Chief Complaint: Psychiatric Symptoms Stated Complaint: 96 Time Seen by Provider: 12/18/24 12:26 Source: patient and police Mode of arrival: ambulatory Limitations: no limitations History of Present Illness: 59-year-old female has a history of alcohol and methamphetamine abuse along with depression patient brought here by police under 96-hour hold for increased paranoia and delusions. She is states that she has been thinking that her father been kidnapped by [employer] and is impersonating him now. She does appear manic here with flight of ideas she denies SI or HI Related Data Home Medications ?Medication ?Instructions ?Recorded ?Confirmed naproxen 500 mg tablet 500 mg PO Q12H 01/31/24 11/08/24 Previous Rx's ?Medication ?Instructions ?Recorded mirtazapine 15 mg tablet 15 mg PO DAILY 30 days #30 tabs 06/29/24 escitalopram oxalate 10 mg tablet 10 mg PO .q am #30 tabs 11/08/24 Allergies Allergy/AdvReac Type Severity Reaction Status Date / Time Penicillins Allergy ALGY-Rash Verified 11/08/24 14:02 quetiapine (From Seroquel) Allergy ALGY-Rash Verified 11/08/24 14:02 sertraline (From Zoloft) Allergy ALGY-Rash Verified 11/08/24 14:02 Review of Systems Const: Denies: fever(s), chills, body aches or change in appetite ENMT: Denies: throat pain or dental pain Card: Denies: chest pain Resp: Denies: dyspnea GI: Denies: abdominal pain, nausea, vomiting or diarrhea Musc: Denies: neck pain or back pain Skin/Breast: Denies: rash Neuro: Denies: headache(s) Psych: Reports: paranoia [facility] ED PFSH: Medical History Psychiatric care Methamphetamine use disorder, moderate, in early remission, dependence History of alcohol use disorder Physical Exam Const: COMMON NORMALS: no acute distress, patient oriented x3 and healthy appearing HENMT: COMMON NORMALS: normocephalic and atraumatic HEAD & SCALP: normocephalic and atraumatic Eye: COMMON NORMALS: conjunctivae normal CONJUNCTIVA: Yes conjunctivae normal Neck/C-Spine: COMMON NORMALS: full ROM and supple Chest: COMMONS NORMALS: normal inspection of the chest Resp: COMMON NORMALS: normal respiratory effort Cardio: COMMON NORMALS: regular rate RATE: regular rate Extremity: COMMON NORMALS: normal to inspection and full ROM Neuro: COMMON NORMALS: patient oriented x3, moves all extremities and no focal motor deficits Psych: ATTITUDE: Yes paranoid MOOD & AFFECT: Yes elevated mood and Yes euphoric Skin: COMMON NORMALS: no rashes or lesions noted and no wounds GENERAL SKIN EXAM: no rashes or lesions noted Course Vital Signs: Vital signs: Vital Signs Temperature 98.3 F 12/18/24 12:38 Pulse Rate 67 12/18/24 12:38 Respiratory Rate 15 12/18/24 12:38 Blood Pressure 117/84 12/18/24 12:38 Pulse Oximetry 97 12/18/24 12:38 Oxygen Delivery Me thod Room Air 12/18/24 12:38 MDM - Psych Medical Decision Making Patient presents here with acute psychosis she is medically cleared spoke to psychiatry she has already been placed on a 6-hour hold will admit at this time Medical Records I reviewed the patient's medical records. Lab Data 12/18/24 12:55 12/18/24 12:55 Laboratory Results WBC 9.47 10^3/uL (3.29-11.43) 12/18/24 12:55 RBC 4.45 10^6/uL (3.85-5.65) 12/18/24 12:55 Hgb 14.10 g/dL (11.27-16.99) 12/18/24 12:55 Hct 42.6 % (36-47) 12/18/24 12:55 MCV 95.7 fl (85-98) 12/18/24 12:55 MCH 31.7 pg (27-33) 12/18/24 12:55 MCHC 33.1 g/dL (30-55) 12/18/24 12:55 RDW 12.5 % (12.1-15.1) 12/18/24 12:55 Plt Count 358 10^3/cmm (157-399) 12/18/24 12:55 MPV 10.5 fL (7.4-10.4) H 12/18/24 12:55 Neut % (Auto) 64.5 % 12/18/24 12:55 Lymph % (Auto) 27.5 % 12/18/24 12:55 Jenkins % (Auto) 5.5 % 12/18/24 12:55 Eos % (Auto) 1.7 % 12/18/24 12:55 Baso % (Auto) 0.6 % 12/18/24 12:55 Neut # (Auto) 6.11 10^3/uL (1.8-7.7) 12/18/24 12:55 Lymph # (Auto) 2.6 10^3/uL (0.8-4.8) 12/18/24 12:55 Jenkins # (Auto) 0.5 10^3/uL (0.2-0.9) 12/18/24 12:55 Eos # (Auto) 0.2 10^3/uL (0.0-0.8) 12/18/24 12:55 Baso # (Auto) 0.1 10^3/uL (0.0-0.1) 12/18/24 12:55 Nucleated RBC % (auto) 0 % 12/18/24 12:55 Nucleated RBCs # 0.0 /100WBC 12/18/24 12:55 No radiology studies performed this visit Discharge Plan Discharge Patient Disposition: Admitted As Inpatient Clinical Impression: Acute psychosis Condition: Stable Coding Level of Care Code ED [employer] for Cecile Vergara
[2024-12-18 12:38] VITALS: BP 117/84; PULSE 67; RESP 15; TEMP 36.8; O2SAT 97; BMI 23.0
[2024-12-18] MEDS: LORazepam 1 MG/0.5 ML injection 2 MG IM (13:00)
[2024-12-18 13:14] LABS: Hematocrit 42.6 % (36-47); Hemoglobin 14.10 g/dL (11.27-16.99); Mean Corpuscular HGB Conc 33.1 g/dL (30-55); Mean Corpuscular Hemoglobin 31.7 pg (27-33); Mean Corpuscular Volume 95.7 fl (85-98); Nucleated Red Blood Cells % 0 %; Platelet Count 358 10^3/cmm (157-399); Red Blood Count 4.45 10^6/uL (3.85-5.65); White Blood Count 9.47 10^3/uL (3.29-11.43)
[2024-12-18 13:33] LABS: Alanine Aminotransferase 15 U/L (0-33); Albumin Level 4.3 g/dL (3.5-5.2); Alkaline Phosphatase 94 U/L (35-105); Anion Gap 14.8 (5-19); Aspartate Amino Transferase 27 U/L (0-32); Blood Urea Nitrogen 12 mg/dL (6-20); Calcium 9.0 mg/dL (8.5-10.5); Carbon Dioxide 27 mmol/L (22-29); Chloride 105 mmol/L (98-107); Creatinine Clr Calc Pharmacy 77.0266; Globulin 2.7 g/dL (1.3-4.6); Glucose 112 mg/dL (65-115); Osmolality Calculated 295 mOsm/kg (285-295); Potassium 4.8 mmol/L (3.5-5.1); Sodium 142 mmol/L (136-145); Total Protein 7.0 g/dL (6.6-8.7)
[2024-12-18 13:34] LABS: Acetaminophen < 5.0 ug/mL (10-30); Alcohol Level < 10 mg/dL (0-10); Salicylate < 0.3 mg/dL (3-10)
[2024-12-18 13:46] LABS: PCP Screen Urine Negative (Negative)
--- NOTE | 2024-12-18 13:54 | PC.NURSE ---
Involuntary 96 hour hold rights read and reviewed with patient. Dustin from security present during reading of rights. Patient verbalized understandings and copy of rights given to patient.
[2024-12-18 14:05] VITALS: BP 124/79; PULSE 69; RESP 19; TEMP 37.2; O2SAT 100
--- NOTE | 2024-12-18 15:13 | PC.NURSE ---
Pt assessment While doing pt skin assessment, the pt stated I have a flea infested home and my dogs have so many fleas and I have so many bites all over Pt was noted to have several small flea like bites to her bilateral arms/legs, abdomen & back. Pt clothing was sealed into a yellow laundry bag and transported to laundry. Pt was ordered a Permethrin hair treatment for precaution and Hydrocortisone cream for the bites/itching.
[2024-12-18] MEDS: permethrin lotion 59 mL Btl 1 APPLIC TOPICAL (17:25)
[2024-12-18 19:25] VITALS: BP 105/74; PULSE 88; RESP 16; TEMP 36.9; O2SAT 97
[2024-12-18] MEDS: blistex lip oint 7 gm Tube 1 APPLIC TOPICAL (19:46)
[2024-12-19 06:00] VITALS: BP 90/58; PULSE 58; RESP 16; O2SAT 99
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
--- NOTE | 2024-12-19 09:25 | PC.OT ---
OT EVALUATION ATTEMPTED; PATIENT IS SLEEPING SOUNDLY. DOES NOT AWAKEN
--- NOTE | 2024-12-19 11:42 | PC.NURSE ---
Pt. received a phone call from her father and was very loud, crying, and upset. Signee had staff turn off the phone and a zyprexa was given.
--- NOTE | 2024-12-19 12:18 | PC.NURSE ---
Pt. c/o pain at a level of 5. Stated it was she was not worthy of an MRI because she was not rich. Very irritable and negative.
[2024-12-19 14:00] VITALS: BP 99/74; PULSE 88; RESP 18; TEMP 37.1; O2SAT 96
[2024-12-19 21:18] VITALS: BP 113/76; PULSE 78; RESP 20; TEMP 36.1; O2SAT 97
[2024-12-20 06:00] VITALS: BP 96/62; PULSE 96; RESP 20; TEMP 36.6; O2SAT 98
[2024-12-20 14:00] VITALS: BP 90/60; PULSE 62; RESP 16; TEMP 36.8; O2SAT 96
--- NOTE | 2024-12-20 16:16 | PC.NURSE ---
pt complaining of itching on bilateral hands. upon assessmetn pt hands have multiple raised pustules on them. notified doctor cathryn of pt condition. will notify hospital consult to see patient.
--- NOTE | 2024-12-20 17:30 | P.NPUPN_ITS ---
Subjective NPU 2 Subjective: 59-year-old female admitted with psychos is the past history of methamphetamine use. The patient had continued to perseverate about concerns that she needed to take care of her dogs and leave the hospital. She continued to state that her father was no longer her father but was rather a replacement and a impostor. She had reported improved sleep. She had denied having any suicidal thoughts currently. Patient was reporting having a lack of supports. She had minimized any substance use. She minimized the use of alcohol despite previous records having revealed that the patient had appeared a bit dysregulated from alcohol use on visits with providers. The patient had isolated herself in her room and continued to suggest that she needed to remove her things from her dilapidated living quarters. Mental Status Exam 2 MSE Comments: This is a well-nourished, white female in hospital scrubs with poor grooming and intense eye contact lying in bed. ? No abnormal involuntary motor movements except for mild psychomotor retardation.? She was cooperative with exam in mild to moderate distress.? Her speech was normal in rate and increased in volume.? Mood described as mad. Her affect remained intense and irritable. Her thought process was linear and logical. ? Thought content: Patient denied suicidal or homicidal ideation. She denied any auditory or visual hallucinations. She had endorsed the belief that her father had been replaced by his doppleganger with bizarre ideas of reference as well. The patient has had thoughts of not wanting to wake up, but denies current suicidal ideation. The patient also reports having nightmares and flashbacks about traumatic events in their life. There was clear evidence of paranoia. Attention and concentration were limited and memory appeared mostly reliable but none were formally tested.? She is alert and oriented x 3.? Insight and judgment is poor. Impulse control is limited. MMSE was 29/30 today. Vitals/I&O/Wt Last Vital Signs Temp 98.3 F 12/20/24 14:00 Pulse 62 12/20/24 14:00 Resp 16 12/20/24 14:00 BP 90/60 12/20/24 14:00 Pulse Ox 96 12/20/24 14:00 O2 Del Method Room Air 12/20/24 14:00 Data NPU 12/18/24 12:55 12/18/24 12:55 A&P Assessment and plan 1. Acute psychosis: 2. Involuntary commitment: 3. Major depressive disorder, recurrent: 4. PTSD (post-traumatic stress disorder): 5. History of alcohol use disorder: 6. Methamphetamine use disorder, moderate, in early remission, dependence: 7. Parent-child relational problem: Plan: This is a 59-year-old white female with a significant history of mental health and addiction as well as trauma and difficulties with her relationship with her father. The patient is currently on a 96-hour involuntary psychiatric hold secondary to bizarre delusions. 1.? Patient remains irritable, Continue Remeron 15mg at night. Trial of Zyprexa 10mg at night. 2.? Continue every 15 minute checks for safety. 3.? Encourage individual, group and milieu therapies. 4. Encourage sober living treatment after discharge at the highest level care to which she is willing to commit. 5. Patient on 96 hour hold. . PDMP PDMP Reviewed: Not Reviewed Involuntary Hold Information 2 Hold Status: Legal Status: 96 Hour Hold Date/Time Hold Expires: 12/24/24 @ 12:45 96 Hour Hold: 96 Hour Involuntary Admission: Yes Attestations NPU 2 Medical Necessity Statement*: Inpatient hospitalization is medically necessary and the clinically appropriate intervention at this time. We will monitor medication to make changes as indicated. Her likely length of stay is 4-6 days. Coding Level of Care Code Acute Code for [facility] Diagnoses Acute psychosis F23 Involuntary commitment Z04.6 Major depressive disorder, recurrent F33.9 PTSD (post-traumatic stress disorder) F43.10 History of alcohol use disorder Z87.898 Methamphetamine use disorder, moderate, in early remission, dependence F15.21 Parent-child relational problem Z62.820
[2024-12-20 20:14] VITALS: BP 115/77; PULSE 78; RESP 19; TEMP 36.4; O2SAT 97
--- NOTE | 2024-12-21 06:45 | PC.NURSE ---
vs not completed per charge nurse resp 16
--- NOTE | 2024-12-21 11:32 | NUR.SHIFT ---
Pt states that she slept really good. She denies anxiety, but rates her depression a 7/10. No reports of SI/HI. She states that she is having auditory hallucinations and she describes it as a mumble in the background. She said she also has times that she hears her sons voice. I asked her if he was still alive and she states that she thinks that he is, she talks to him on the phone occasionally, but she hasn't actually laid eyes on him since he was 13. He was removed from her home at that age. She also spoke of being at increased risk of homelessness, because her dad is evicting her d/t selling the property she resides on. She is tearful during the assessment, but calm.
[2024-12-21 14:00] VITALS: BP 116/82; PULSE 70; RESP 16; TEMP 36.7; O2SAT 98
--- NOTE | 2024-12-21 14:58 | P.NPUPN_ITS ---
Subjective NPU 2 Subjective: Patient presented today reporting that things were going okay. She spent a lot of time talking about the problems that exist in her triple and that she is imagining a rotational solution with her coming to [place] and connecting through the systems here. She reports that when she is there she has no healthy connections and is very isolated. She reports that she would be open to even being homeless. Are going to a halfway but needs to just get a truck and get her things and move into a storage unit here while she is trying to get her housing situation under control. She denied addiction issues but was certainly positive for cannabis and somewhat downplayed any role that might have in her difficulties. She denied any side effects to her medications. Mental Status Exam 2 MSE Comments: This is a well-nourished, white female in hospital scrubs with poor grooming and intense eye contact lying in bed. ? No abnormal involuntary motor movements except for mild psychomotor retardation.? She was cooperative with exam in mild to moderate distress.? Her speech was normal in rate and increased in volume.? Mood described as mad. Her affect remained intense and irritable. Her thought process was linear and logical. ? Thought content: Patient denied suicidal or homicidal ideation. She denied any auditory or visual hallucinations. She had endorsed the belief that her father had been replaced by his doppleganger with bizarre ideas of reference as well. The patient has had thoughts of not wanting to wake up, but denies current suicidal ideation. The patient also reports having nightmares and flashbacks about traumatic events in their life. There was clear evidence of paranoia. Attention and concentration were limited and memory appeared mostly reliable but none were formally tested.? She is alert and oriented x 3.? Insight and judgment is poor. Impulse control is limited. MMSE was 29/30 today. Vitals/I&O/Wt Last Vital Signs Temp 97.5 F L 12/20/24 20:14 Pulse 78 12/20/24 20:14 Resp 19 H 12/20/24 20:14 BP 115/77 12/20/24 20:14 Pulse Ox 97 12/20/24 20:14 O2 Del Method Room Air 12/20/24 20:14 Data NPU 12/18/24 12:55 12/18/24 12:55 A&P Assessment and plan 1. Acute psychosis: 2. Involuntary commitment: 3. Major depressive disorder, recurrent: 4. PTSD (post-traumatic stress disorder): 5. History of alcohol use disorder: 6. Methamphetamine use disorder, moderate, in early remission, dependence: 7. Parent-child relational problem: Plan: This is a 59-year-old white female with a significant history of mental health and addiction as well as trauma and difficulties with her relationship with her father. The patient is currently on a 96-hour involuntary psychiatric hold secondary to bizarre delusions. 1.? Patient remains irritable, Continue Remeron 15mg at night. Trial of Zyprexa 10mg at night. 2.? Continue every 15 minute checks for safety. 3.? Encourage individual, group and milieu therapies. 4. Encourage sober living treatment after discharge at the highest level care to which she is willing to commit. 5. Patient on 96 hour hold. . PDMP PDMP Reviewed: Not Reviewed Involuntary Hold Information 2 Hold Status: Legal Status: 96 Hour Hold Date/Time Hold Expires: 12/24/24 @ 12:45 96 Hour Hold: 96 Hour Involuntary Admission: Yes Attestations NPU 2 Medical Necessity Statement*: Inpatient hospitalization is medically necessary and the clinically appropriate intervention at this time. We will monitor medication to make changes as indicated. Her likely length of stay is greater than 5 days. Coding Level of Care Code Acute Code for [facility] F[facility] Diagnoses Acute psychosis F23 Involuntary commitment Z04.6 Major depressive disorder, recurrent F33.9 PTSD (post-traumatic stress disorder) F43.10 History of alcohol use disorder Z87.898 Methamphetamine use disorder, moderate, in early remission, dependence F15.21 Parent-child relational problem Z62.820
[2024-12-21 20:41] VITALS: BP 111/83; PULSE 87; RESP 18; TEMP 36.6; O2SAT 96
[2024-12-22 06:00] VITALS: BP 101/68; PULSE 72; RESP 16; TEMP 36.8; O2SAT 98
--- NOTE | 2024-12-22 10:44 | NUR.SHIFT ---
Pt states that once she got her mind to calm she was able to fall asleep. She rates her anxiety a 4/10 and depression 2/10. No reports of SI/HI, but cont to endorse her auditory hallucinations. She rates her mid back pain a 5/10 and has been using tylenol and IBU regularly. She is calm and cooperative on assessment.
[2024-12-22 14:00] VITALS: BP 111/83; PULSE 81; RESP 16; TEMP 36.5; O2SAT 99
--- NOTE | 2024-12-22 19:41 | P.NPUPN_ITS ---
Subjective NPU 2 Subjective: Patient presented today reporting that in general she is feeling like she is moving in the right direction. She made appointment of apologizing for some reported behavior from her 2023 hospitalization where she was treated by this chief underwriter. She was somewhat tearful when she said this and we discussed the fact that I do not have a recollection of any specific issue that we had and that we do not the types of things that I think about during my decision making. We discussed the likelihood of discharge at the beginning of the week and the need for her to figure out what she is going to do from a residential standpoint. She continues to report a willingness to be homeless. She denied any side effects of the medication. Mental Status Exam 2 MSE Comments: This is a well-nourished, white female in hospital scrubs with poor grooming and intense eye contact lying in bed. ? No abnormal involuntary motor movements except for mild psychomotor retardation.? She was cooperative with exam in mild to moderate distress.? Her speech was normal in rate and increased in volume.? Mood described as mad. Her affect remained intense and irritable. Her thought process was linear and logical. ? Thought content: Patient denied suicidal or homicidal ideation. She denied any auditory or visual hallucinations. She had endorsed the belief that her father had been replaced by his doppleganger with bizarre ideas of reference as well. The patient has had thoughts of not wanting to wake up, but denies current suicidal ideation. The patient also reports having nightmares and flashbacks about traumatic events in their life. There was clear evidence of paranoia. Attention and concentration were limited and memory appeared mostly reliable but none were formally tested.? She is alert and oriented x 3.? Insight and judgment is poor. Impulse control is limited. MMSE was 29/30 today. Vitals/I&O/Wt Last Vital Signs Temp 97.7 F 12/22/24 14:00 Pulse 81 12/22/24 14:00 Resp 16 12/22/24 14:00 BP 111/83 12/22/24 14:00 Pulse Ox 99 12/22/24 14:00 O2 Del Method Room Air 12/22/24 14:00 Data NPU 12/18/24 12:55 12/18/24 12:55 A&P Assessment and plan 1. Acute psychosis: 2. Involuntary commitment: 3. Major depressive disorder, recurrent: 4. PTSD (post-traumatic stress disorder): 5. History of alcohol use disorder: 6. Methamphetamine use disorder, moderate, in early remission, dependence: 7. Parent-child relational problem: Plan: This is a 59-year-old white female with a significant history of mental health and addiction as well as trauma and difficulties with her relationship with her father. The patient is currently on a 96-hour involuntary psychiatric hold secondary to bizarre delusions. 1.? Patient less irritable, Continue Remeron 15mg at night. Trial of Zyprexa 10mg at night. 2.? Continue every 15 minute checks for safety. 3.? Encourage individual, group and milieu therapies. 4. Encourage sober living treatment after discharge at the highest level care to which she is willing to commit. 5. Patient on 96 hour hold. . PDMP PDMP Reviewed: Not Reviewed Involuntary Hold Information 2 Hold Status: Legal Status: 96 Hour Hold Date/Time Hold Expires: 12/24/24 @ 12:45 96 Hour Hold: 96 Hour Involuntary Admission: Yes Attestations NPU 2 Medical Necessity Statement*: Inpatient hospitalization is medically necessary and the clinically appropriate intervention at this time. We will monitor medication to make changes as indicated. Her likely length of stay is greater than 2-4 days. Coding Level of Care Code Acute Code for [facility] Fw Diagnoses Acute psychosis F23 Involuntary commitment Z04.6 Major depressive disorder, recurrent F33.9 PTSD (post-traumatic stress disorder) F43.10 History of alcohol use disorder Z87.898 Methamphetamine use disorder, moderate, in early remission, dependence F15.21 Parent-child relational problem Z62.820
[2024-12-22 20:22] VITALS: BP 114/84; PULSE 97; RESP 18; TEMP 36.4; O2SAT 99
[2024-12-23 06:00] VITALS: BP 97/68; PULSE 70; RESP 17; TEMP 37.2; O2SAT 100; BMI 23.8
--- NOTE | 2024-12-23 09:28 | NUR.SHIFT ---
Pt states that she slept good last night, once she got to sleep. I let pt know that the last 3 nights the nurses have given her trazodone and does that seem to have worked. She was shocked by this and stated that she had a script before and she thought it made her restless leg worse, but it must have been the other med she was on at the same time, because she not noticed that happening the last few nights. She is now interested in maybe being d/c with the medication. She rates her anxiety a 2/10 and depression 2/10. She states that she will never have no anxiety or depression, she feels this is her baseline and how she feels this morning in managable for her. No reports of SI/HI, but does endorse her auditory hallucinations that she always has. She rates her back pain a 4/10, also states that she will always have that, but it's very managable today. She states that she would like to use the ibuprofen like twice today to just keep it under control. Pt is calm and cooperative on assessment.
[2024-12-23 14:00] VITALS: BP 127/84; PULSE 85; RESP 16; TEMP 36.6; O2SAT 99
--- NOTE | 2024-12-23 15:40 | P.NPUPN_ITS ---
Subjective NPU 2 Subjective: Patient presented today reporting that things are going better. He continues to focus on the possibility of getting connected with a program here in [place] and getting out of this space as she occupies into pool. She continues to report that she would even deal with being homeless for a period of time if there was a vision for improvement. 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 We discussed working with the social work team on Tuesday and seeing what options exist. She denied any side effects to medication Mental Status Exam 2 MSE Comments: This is a well-nourished, white female in hospital scrubs with poor grooming and intense eye contact lying in bed. ? No abnormal involuntary motor movements except for mild psychomotor retardation.? She was cooperative with exam in mild distress.? Her speech was normal in rate and increased in volume.? Mood described as getting better. Her affect was congruent. Her thought process was linear and logical. ? Thought content: Patient denied suicidal or homicidal ideation. She denied any auditory or visual hallucinations. She had endorsed the belief that her father had been replaced by his doppleganger with bizarre ideas of reference as well. The patient has had thoughts of not wanting to wake up, but denies current suicidal ideation. The patient also reports having nightmares and flashbacks about traumatic events in their life. There was clear evidence of paranoia. Attention and concentration were limited and memory appeared mostly reliable but none were formally tested.? She is alert and oriented x 3.? Insight and judgment is poor. Impulse control is limited. Vitals/I&O/Wt Last Vital Signs Temp 98 F 12/23/24 14:00 Pulse 85 12/23/24 14:00 Resp 16 12/23/24 14:00 BP 127/84 12/23/24 14:00 Pulse Ox 99 12/23/24 14:00 O2 Del Method Room Air 12/23/24 14:00 Weight last 48 hrs Weight 61.008 kg Data NPU 12/18/24 12:55 12/18/24 12:55 A&P Assessment and plan 1. Acute psychosis: 2. Involuntary commitment: 3. Major depressive disorder, recurrent: 4. PTSD (post-traumatic stress disorder): 5. History of alcohol use disorder: 6. Methamphetamine use disorder, moderate, in early remission, dependence: 7. Parent-child relational problem: Plan: This is a 59-year-old white female with a significant history of mental health and addiction as well as trauma and difficulties with her relationship with her father. The patient is currently on a 96-hour involuntary psychiatric hold secondary to bizarre delusions. 1.? Patient less irritable, Continue Remeron 15mg at night. Trial of Zyprexa 10mg at night. 2.? Continue every 15 minute checks for safety. 3.? Encourage individual, group and milieu therapies. 4. Encourage sober living treatment after discharge at the highest level care to which she is willing to commit. 5. Patient on 96 hour hold. . PDMP PDMP Reviewed: Not Reviewed Involuntary Hold Information 2 Hold Status: Legal Status: 96 Hour Hold Date/Time Hold Expires: 12/24/24 @ 12:45 96 Hour Hold: 96 Hour Involuntary Admission: Yes Attestations NPU 2 Medical Necessity Statement*: Inpatient hospitalization is medically necessary and the clinically appropriate intervention at this time. We will monitor medication to make changes as indicated. Her likely length of stay is greater than 1-2 days. Coding Level of Care Code Acute Code for [facility] Fwd Diagnoses Acute psychosis F23 Involuntary commitment Z04.6 Major depressive disorder, recurrent F33.9 PTSD (post-traumatic stress disorder) F43.10 History of alcohol use disorder Z87.898 Methamphetamine use disorder, moderate, in early remission, dependence F15.21 Parent-child relational problem Z62.820
[2024-12-23 20:52] VITALS: BP 112/76; PULSE 75; RESP 18; TEMP 36.5; O2SAT 98
[2024-12-24 06:00] VITALS: BP 93/62; PULSE 64; RESP 18; TEMP 36.6; O2SAT 98
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
[2024-12-24 13:47] VITALS: BP 93/62; PULSE 64; RESP 18; TEMP 36.6; O2SAT 98
[2024-12-24 13:48] VITALS: BP 93/62; PULSE 64; RESP 18; TEMP 36.6; O2SAT 98
== END 2024-12-24 14:24 | disposition home or self-care (01) | DRG 885 ==
LOC: ER 12:57 → NP 13:40
PROVIDERS: Admitting Provider Psychiatry & Neurology Psychiatry; Emergency Provider Emergency Medicine; PCP Nurse Practitioner Family; Visit Provider Psychiatry & Neurology Psychiatry
DX: F23 Brief psychotic disorder (principal); F33.9 Major depressive disorder, recurrent, unspecified; Z59.00 Homelessness unspecified; F15.21 Other stimulant dependence, in remission; Z88.0 Allergy status to penicillin; F43.10 Post-traumatic stress disorder, unspecified; F12.90 Cannabis use, unspecified, uncomplicated; Z90.49 Acquired absence of other specified parts of digestive tract; Z98.51 Tubal ligation status; Z81.8 Family history of other mental and behavioral disorders; Z91.51 Personal history of suicidal behavior
CPT/HCPCS: 36415; 80053; 80306; 80307; 85025; 96372; 97150; 97165; 99285; J2060; J9999